=== PATIENT | female | born 1975 | race Caucasian/White ===

== ENCOUNTER 2016-05-30 19:11 | Emergency (ER) | payer OTHER ==
[2016-05-30 19:21] VITALS: BP 138/114; BMI 39.4
--- NOTE | 2016-05-30 20:42 | DR.GENAD ---
HPI - PCP Primary Care Physician: jason - Complaint/Symptoms Chief Complaint:: patient has several problems: chest wall pain, swelling in her legs, abcess on her face,neck and abd, nausea, and a cold. she was on vancomycin about 2 months ago. she takes methadone for her pain that the doctor gave her - Source History Provided: Patient - Mode of Arrival Mode of Arrival: Ambulatory - Timing Onset of Chief Complaint: 05/26/16 PMH - PMH Past Medical History: Yes Past Medical History: CHF, Hypertension Past Medical History Comment: mass in right kidney,mass in right knee Past Surgical History: Yes Surgical History: Abdominal Surgery, Cholecystectomy, ETL DATA ARCHITECT Surgery, Hysterectomy - Family History History of Family Medical Conditions: No - Social History Does patient currently use any type of tobacco product: Yes Have you used tobacco products in the last 12 months: Yes Type of Tobacco Use: Cigarettes How many years tobacco product used: 20 Does any household member use tobacco: No Alcohol Use: None Do you use any recreational Drugs:: No Lives With: Family Lives Where: Home - infectious screening In the last 2 months have you had wt loss of >10#?: NO Have you had fever, night sweats or hemotysis?: No Have you traveled outside the country in the last 6 months?: No Isolation: Standard ROS - Review of Systems Constitutional: No Symptoms Reported Eyes: No Symptoms Reported ENTM: No Symptoms Reported Respiratoy: No Symptoms Reported Cardiovascular: No Symptoms Reported Gastrointestinal/Abdominal: No Symptoms Reported Genitourinary: No Symptoms Reported, Discharge Musculoskeletal: No Symptoms Reported Integumentary: Change in Color, Lesions (carbuncle right lower chin, abdomen erythematous excoriated circular lesion c/w staph) Hematologic/Lymphatic: No Symptoms Reported Endocrine: No Symptoms Reported Psychiatric: No Symptoms Reported All Other Systems: Reviewed and Negative PE - Vital Signs Vitals: Temperature 99.0 F Pulse Rate 100 Respiratory Rate 16 Blood Pressure 138/114 O2 Sat by Pulse Oximetry 99 - General Limitations: No Limitations General Appearance: Alert, In No Apparent Distress - Head Head Exam: Normal Inspection, Atraumatic - Eyes Eye exam: Normal Appearance, PERRL, EOMI - ENT ENT Exam: Normal Exam External Ear Exam: Normal External Inspection TM/Canal Exam: Bilateral Normal Nose Exam: Normal Nose Exam Mouth Exam: Normal Inspection Throat Exam: Normal Inspection - Neck Neck Exam: Normal Inspection - Chest Chest Inspection: Normal Inspection - Respiratory Respiratory Exam: Normal Lung Sounds Bilat Respiratory Exam: Bilateral Clear to Auscultation - Cardiovascular Cardiovascular Exam: Regular Rate, Normal Rhythm - Abdominal Exam Abdominal Exam: Normal Inspection Abdominal Tenderness: negative: RUQ, RLQ, LUQ, LLQ, Epigastrium, Suprapubic, Diffuse, Mild, Moderate, Severe, Other - Extremities Extremities Exam: Normal Inspection - Back Back Exam: Normal Inspection - Neurologic Neurological Exam: Alert, Oriented X3, CN II-XII Intact - Psychiatric Psychiatric Exam: Normal Affect, Normal Mood - Skin Skin Exam: Warm, Dry, Other (coin lesion excoriated central erythema inferior lateral navel left; papular erythematous lesion right lateral chin) - Diagnosis Discharge Problem: Carbuncle and furuncle - Discharge Plan Condition: Stable - Follow ups/Referrals Follow ups/Referrals: OKSANA VU [Primary Care Provider] - 3 days - Instructions
[2016-05-30] MEDS ORDERED: ROCEPHIN VIAL 1 GM IM ONE (21:05)
[2016-05-30] MEDS ORDERED: XYLOCAINE 1 % (PLAIN) ONE (21:09)
[2016-05-30] MEDS ORDERED: ROCEPHIN VIAL 1 GM ONE (21:09)
== END 2016-05-30 21:27 | disposition home or self-care (01) ==
LOC: ER 19:11
DX: L02.93 Carbuncle, unspecified (principal); L02.92 Furuncle, unspecified
CPT/HCPCS: 96372; 99282; J0696; J2001